=== PATIENT | male | born 1980 | race Hispanic/Latino ===

== ENCOUNTER 2017-08-21 08:34 | Day surgery (SDC) | payer OTHER ==
[2017-08-20 15:22] VITALS: BP 146/78
[2017-08-20 15:22] LABS: BASOPHILS % (AUTO) 0.8 % (0.0-5.0); EOSINOPHILS % (AUTO) 4.5 % (0.0-8.0); LYMPHOCYTES % (AUTO) 21.5 % (21.0-51.0); MEAN CORPUSCULAR HEMOGLOBIN 31.4 pg (27.0-33.0); MEAN CORPUSCULAR VOLUME 89.6 fL (79-99); MONOCYTES % (AUTO) 8.1 % (3.0-13.0); NEUTROPHILS % (AUTO) 65.1 % (40.0-77.0); PLATELET COUNT (AUTO) 225 K/uL (130-400); RED BLOOD CELL COUNT(AUTO) 5.02 MIL/uL (4.50-6.20); RED CELL DISTRIBUTION WIDTH 13.1 % (11.0-15.5); WHITE BLOOD COUNT (AUTO) 10.4 K/uL (4.8-10.8)
[2017-08-20 15:35] LABS: CREATININE 1.1 mg/dL (0.5-1.5); POTASSIUM 4.4 mmol/L (3.5-5.1)
[2017-08-21] VITALS (15 sets, daily range): BP systolic 107–132; BP diastolic 63–77
[~2017-08-21] VITALS: Ht 176.5 cm; Wt 89.4 kg
[~2017-08-21 08:34] MED LIST: TRAZ-147 PO; WATER FOR INJECTION,STERILE 20 ML VIAL IJ ONE
[2017-08-21] MEDS ORDERED: EPINEPHRINE 1 MG/ML 30ML VIAL IJ ONE (09:05)
[2017-08-21] MEDS ORDERED: NAPR-1023 PO (09:06)
[2017-08-21] MEDS ORDERED: SERT50TA12 PO (09:06)
[2017-08-21] MEDS ORDERED: CEFAZOLIN SODIUM 1 GM VIAL ONE (09:06)
[2017-08-21] MEDS ORDERED: CYCL10TA7 PO (09:06)
[2017-08-21] MEDS ORDERED: LACTATED RINGERS 1000ML 1,000 ML IV ONE (09:06)
[2017-08-21] MEDS: CEFAZOLIN SODIUM 1 GM VIAL IVP ONE ×2 (09:26→10:20)
[2017-08-21] MEDS ORDERED: DEXAMETHASONE SOD PHOSPHATE 10MG/ML 1ML VIAL ONE (10:07)
[2017-08-21] MEDS ORDERED: GLYCOPYRROLATE 0.2 MG/ML 5 ML VIAL ONE (10:07)
[2017-08-21] MEDS ORDERED: PROPOFOL 10 MG/ML 20ML VIAL IV ONE ×3 (10:07→12:25)
[2017-08-21] MEDS ORDERED: LIDOCAINE PF 2% 5ML ABBOJECT ONE (10:07)
[2017-08-21] MEDS ORDERED: ONDANSETRON HCL 4 MG/2 ML VIAL ONE (10:07)
[2017-08-21] MEDS ORDERED: SUCCINYLCHOLINE 200MG/10ML SYR ONE (10:07)
[2017-08-21] MEDS ORDERED: MIDAZOLAM HCL 1 MG/ML 2ML VIAL ONE (10:08)
[2017-08-21] MEDS ORDERED: FENTANYL CITRATE PF 50 MCG/1 ML 2ML VIAL ONE (10:08)
[2017-08-21] MEDS ORDERED: MEPERIDINE-PF 50 MG/ML SYG ONE (12:36)
[2017-08-21] MEDS ORDERED: KETOROLAC TROMETHAMINE 30MG/ML ONE (12:36)
== END 2017-08-21 14:11 | disposition home or self-care (01) ==
LOC: DAH 08:34
PROVIDERS: ATTEND Orthopaedic Surgery
DX: M75.41 Impingement syndrome of right shoulder (principal); G89.29 Other chronic pain; J20.9 Acute bronchitis, unspecified; M25.511 Pain in right shoulder
CPT/HCPCS: 29822; 29824; 36415; 80048; 85025; A4218; A4565; A4649 ×3; A4930; A6204; J0171; J0330; J0690; J1100; J1885; J2001; J2175; J2250; J2405; J2704 ×3; J3010; J3490; J7030; J7120

== ENCOUNTER 2019-09-16 22:27 | Emergency (ER) | payer OTHER ==
[~2019-09-16 22:27] MED LIST changes: +CYCL10TA7 PO; +NAPR-1023 PO; +SERT50TA12 PO; -TRAZ-147 PO; +TRAZ-187 PO; -WATER FOR INJECTION,STERILE 20 ML VIAL IJ ONE
[2019-09-16 22:54] LABS: BASOPHILS % (AUTO) 0.4 % (0.0-5.0); EOSINOPHILS % (AUTO) 6.2 % (0.0-8.0); LYMPHOCYTES % (AUTO) 31.3 % (21.0-51.0); MEAN CORPUSCULAR HGB CONC 34.8 g/dL (32.0-36.0); MEAN CORPUSCULAR VOLUME 86.4 fL (79-99); MONOCYTES % (AUTO) 8.2 % (3.0-13.0); NEUTROPHILS % (AUTO) 53.6 % (40.0-77.0); PLATELET COUNT (AUTO) 223 K/uL (130-400); RED BLOOD CELL COUNT(AUTO) 4.86 MIL/uL (4.50-6.20); RED CELL DISTRIBUTION WIDTH 12.8 % (11.0-15.5); WHITE BLOOD COUNT (AUTO) 8.9 K/uL (4.8-10.8)
[2019-09-16 23:08] LABS: CREATININE 0.7 mg/dL (0.5-1.5); POTASSIUM 3.6 mmol/L (3.5-5.1)
[2019-09-16 23:12] LABS: ALBUMIN 3.9 g/dL (3.5-5.0); BILIRUBIN,TOTAL 0.2 mg/dL (0.2-1.0); TOTAL PROTEIN, SERUM 7.8 g/dL (6.0-8.3)
[2019-09-16] MEDS ORDERED: ONDANSETRON HCL 4 MG/2 ML VIAL ONE (23:14)
[2019-09-16] MEDS ORDERED: KETOROLAC TROMETHAMINE 30MG/ML ONE (23:14)
[2019-09-16 23:16] LABS: B-TYPE NATRIURETIC PEPTIDE < 5 pg/mL (0-100)
== END 2019-09-17 01:12 | disposition home or self-care (01) ==
LOC: EDH 22:27
DX: R07.89 Other chest pain (principal); F41.9 Anxiety disorder, unspecified; F43.10 Post-traumatic stress disorder, unspecified; I10 Essential (primary) hypertension; Z72.0 Tobacco use
CPT/HCPCS: 36415; 71045; 80053; 82550; 83880; 84484; 85025; 93005; 96374; 96375; 99285; J1885; J2405

== ENCOUNTER → 2019-10-25 | Outpatient (CLI) | payer OTHER | END | disposition home or self-care (01) | LOC: SHCH 12:52 | PROVIDERS: ATTEND Internal Medicine Cardiovascular Disease | DX: I10 Essential (primary) hypertension (principal) | CPT/HCPCS: 93306 ==

== ENCOUNTER → 2019-10-28 | Outpatient (CLI) | payer OTHER ==
[~2019-10-28] MED LIST changes: +REGADENOSON 0.4 MG/5 ML PF SYG IVP SCH
== END | disposition home or self-care (01) ==
LOC: SHCH 08:05
PROVIDERS: ATTEND Internal Medicine Cardiovascular Disease
DX: R07.9 Chest pain, unspecified (principal); I10 Essential (primary) hypertension
CPT/HCPCS: 78452; 93017; 96374; A9500 ×2; J2785

== ENCOUNTER 2019-11-16 05:26 | Day surgery (SDC) | payer OTHER ==
[2019-11-14 09:42] LABS: BASOPHILS % (AUTO) 0.4 % (0.0-5.0); EOSINOPHILS % (AUTO) 5.4 % (0.0-8.0); HEMATOCRIT 43.5 % (42-54); LYMPHOCYTES % (AUTO) 22.8 % (21.0-51.0); MEAN CORPUSCULAR HEMOGLOBIN 30.3 pg (27.0-33.0); MEAN CORPUSCULAR HGB CONC 34.9 g/dL (32.0-36.0); MEAN CORPUSCULAR VOLUME 86.7 fL (79-99); MONOCYTES % (AUTO) 6.8 % (3.0-13.0); NEUTROPHILS % (AUTO) 64.3 % (40.0-77.0); PLATELET COUNT (AUTO) 239 K/uL (130-400); RED BLOOD CELL COUNT(AUTO) 5.02 MIL/uL (4.50-6.20); RED CELL DISTRIBUTION WIDTH 13.2 % (11.0-15.5); WHITE BLOOD COUNT (AUTO) 7.5 K/uL (4.8-10.8)
[2019-11-14 09:50] LABS: CREATININE 0.8 mg/dL (0.5-1.5)
[2019-11-14 10:04] LABS: APPEARANCE,URINE Clear (CLEAR); BILIRUBIN,URINE Negative (NEGATIVE); COLOR,URINE Yellow (YELLOW); GLUCOSE, URINE (UA) Negative (NEGATIVE); KETONES,URINE Negative (NEGATIVE); LEUKOCYTE ESTERASE ,URINE Trace (NEGATIVE); NITRATE,URINE Negative (NEGATIVE); OCCULT BLOOD,URINE Negative (NEGATIVE); PH,URINE 5.5 (5.0-8.0); PROTEIN,URINE Negative (NEGATIVE)
[2019-11-14 10:12] LABS: BACTERIA,URINE Rare /HPF (None Seen); MUCUS,URINE Few LPF (None Seen); RBC,URINE 0-1 /HPF (0-1); SQUAMOUS EPITHELIAL CELL,UR Rare /HPF (0-2); WBC,URINE 0-1 /HPF (0-1)
[2019-11-14 10:12] LABS: INR 0.92 (0.85-1.15); PARTIAL THROMBOPLASTIN TIME 29.6 SEC (26.3-35.5)
[2019-11-14 10:19] VITALS: BP 125/58
[~2019-11-16] VITALS: Ht 175.3 cm; Wt 91.8 kg
[2019-11-16] VITALS (12 sets, daily range): BP systolic 112–149; BP diastolic 62–76
[~2019-11-16 05:26] MED LIST changes: +AMLO-257 PO; -CYCL10TA7 PO; +ISOS30TA6 PO; -NAPR-1023 PO; +NITR0.4T50 SL; +OMEP20CA12 PO; +PRAZ2CAP2 PO; -REGADENOSON 0.4 MG/5 ML PF SYG IVP SCH; +SODIUM CHLORIDE 0.9% 500ML 500 ML IV SCH; -TRAZ-187 PO
[2019-11-16] MEDS ORDERED: SODIUM CHLORIDE 0.9% 1000ML 1,000 ML IV ONE (05:49)
--- NOTE | 2019-11-16 06:00 | NUR ---
PREOP PT ARRIVED AMBULATORY IN NO DISTRESS. PT ORIENTED TO ROOM, CALL LIGHT AND CONNECTED TO CLEARING SUPERVISOR. PT HERE FOR [facility].
[2019-11-16] MEDS ORDERED: HEPARIN SODIUM 1000UNIT/ML 10ML VIAL ONE (07:14)
[2019-11-16] MEDS ORDERED: IOHEXOL-350 50ML VIAL IV ONE (07:14)
[2019-11-16] MEDS ORDERED: IOHEXOL 350 MG/ML 100ML INFUS..BTL IV ONE (07:14)
[2019-11-16] MEDS ORDERED: LIDOCAINE HCL 2% 20ML ONE (07:15)
--- NOTE | 2019-11-16 07:20 | NUR ---
laboratory clerk pt taken to laboratory clerk by toshia hutchison
--- NOTE | 2019-11-16 08:30 | NUR ---
post cath PT ARRIVED POST CATH. PT IN BED IN SUPINE POSITION. PT IN NO DISTRESS. OFELIA GALVAN WITH PT. RECEIVED REPORT FROM RAHEEM GALVAN. BEDREST FOR 6 HOURS.
--- NOTE | 2019-11-16 14:00 | NUR ---
post op pt/spouse given discharge papers and instructions. no hematoma or bleeding noted to rt groin puncture site. pt taken out via w/v in no distress
== END 2019-11-16 14:00 | disposition home or self-care (01) ==
LOC: DAH 05:26
PROVIDERS: ATTEND Internal Medicine Cardiovascular Disease
DX: I20.9 Angina pectoris, unspecified (principal); I11.9 Hypertensive heart disease without heart failure; K21.9 Gastro-esophageal reflux disease without esophagitis; F41.9 Anxiety disorder, unspecified; F32.9 Major depressive disorder, single episode, unspecified; F17.210 Nicotine dependence, cigarettes, uncomplicated; Z98.890 Other specified postprocedural states; Z87.442 Personal history of urinary calculi; Z79.899 Other long term (current) drug therapy; Z72.89 Other problems related to lifestyle; Z79.01 Long term (current) use of anticoagulants; Z83.3 Family history of diabetes mellitus; Z82.49 Family history of ischemic heart disease and other diseases of the circulatory system
CPT/HCPCS: 36415; 71045; 80048; 81001; 85025; 85610; 85730; 93005; 93458; A4215; A4216; A4221; A4222; A4223 ×3; A4606; A4663; C1894; J1644 ×2; J3490; J7030 ×2; Q9965; Q9967 ×2

== ENCOUNTER 2019-11-27 01:40 | Emergency (ER) | payer OTHER ==
[~2019-11-27 01:40] MED LIST changes: -SODIUM CHLORIDE 0.9% 500ML 500 ML IV SCH
[2019-11-27] MEDS ORDERED: MORPHINE SULFATE 2 MG/ML 1ML SYG ONE ×2 (02:11→03:08)
[2019-11-27] MEDS ORDERED: ONDANSETRON HCL 4 MG/2 ML VIAL ONE (02:11)
[2019-11-27 02:20] LABS: BASOPHILS % (AUTO) 0.6 % (0.0-5.0); HEMATOCRIT 43.8 % (42-54); LYMPHOCYTES % (AUTO) 27.1 % (21.0-51.0); MEAN CORPUSCULAR HEMOGLOBIN 30.2 pg (27.0-33.0); MEAN CORPUSCULAR HGB CONC 35.6 g/dL (32.0-36.0); MEAN CORPUSCULAR VOLUME 84.9 fL (79-99); MONOCYTES % (AUTO) 6.8 % (3.0-13.0); NEUTROPHILS % (AUTO) 61.1 % (40.0-77.0); PLATELET COUNT (AUTO) 248 K/uL (130-400); RED BLOOD CELL COUNT(AUTO) 5.16 MIL/uL (4.50-6.20); RED CELL DISTRIBUTION WIDTH 12.8 % (11.0-15.5); WHITE BLOOD COUNT (AUTO) 9.9 K/uL (4.8-10.8)
[2019-11-27 02:24] LABS: APPEARANCE,URINE Clear (CLEAR); BILIRUBIN,URINE Negative (NEGATIVE); COLOR,URINE Yellow (YELLOW); GLUCOSE, URINE (UA) Negative (NEGATIVE); KETONES,URINE Negative (NEGATIVE); LEUKOCYTE ESTERASE ,URINE Negative (NEGATIVE); NITRATE,URINE Negative (NEGATIVE); OCCULT BLOOD,URINE Negative (NEGATIVE); PH,URINE 5.5 (5.0-8.0); PROTEIN,URINE Trace mg/dL (NEGATIVE); UROBILINOGEN,URINE 0.2 mg/dL (0.2-1.0)
[2019-11-27 02:38] LABS: INR 0.92 (0.85-1.15); PARTIAL THROMBOPLASTIN TIME 27.8 SEC (26.3-35.5)
[2019-11-27] MEDS ORDERED: ORPHENADRINE CITRATE 30 MG/ML ML ONE (03:07)
[2019-11-27 03:17] LABS: CREATININE 0.7 mg/dL (0.5-1.5); POTASSIUM 3.7 mmol/L (3.5-5.1)
[2019-11-27] MEDS ORDERED: IOHEXOL 350 MG/ML 100ML INFUS..BTL IV ONE (03:20)
[2019-11-27 03:24] LABS: ALBUMIN 4.3 g/dL (3.5-5.0); BILIRUBIN,TOTAL 0.4 mg/dL (0.2-1.0); TOTAL PROTEIN, SERUM 8.3 g/dL (6.0-8.3)
[2019-11-27] MEDS ORDERED: KETOROLAC TROMETHAMINE 30MG/ML ONE (04:18)
== END 2019-11-27 04:31 | disposition home or self-care (01) ==
LOC: EDH 01:40
DX: S20.219A Contusion of unspecified front wall of thorax, initial encounter (principal); F41.9 Anxiety disorder, unspecified; I10 Essential (primary) hypertension; Z72.0 Tobacco use; W18.39XA Other fall on same level, initial encounter; Y93.01 Activity, walking, marching and hiking; Y92.89 Other specified places as the place of occurrence of the external cause; Y99.8 Other external cause status
CPT/HCPCS: 36415; 71260; 74177; 80053; 81003; 82550; 83690; 85025; 85610; 85730; 96374; 96375; 96376; 99285; J1885; J2360; J2405; Q9967